=== PATIENT | female | born 1990 | race Two or more races ===

== ENCOUNTER 2019-05-19 20:09 | Emergency (ER) | payer MEDICAID, OTHER ==
[~2019-05-19] VITALS: Ht 157.5 cm; Wt 50.0 kg
[~2019-05-19 20:09] MED LIST: AZIT250T9 PO; PROM5SYR PO
[2019-05-19] MEDS ORDERED: LORazepam 1 MG TABLET PO ONE (23:15)
[2019-05-20 00:03] VITALS: BP 123/66
== END 2019-05-20 00:12 | disposition home or self-care (01) ==
LOC: EMS 20:10
DX: F41.9 Anxiety disorder, unspecified (principal)

== ENCOUNTER 2021-02-02 10:26 | Inpatient (IN) | payer MEDICAID, OTHER ==
[~2021-02-02] VITALS: Ht 162.6 cm; Wt 56.0 kg
[2021-02-02 11:15] LABS: BASOPHILS % (AUTO) 1.1 % (0.0-2.0); EOSINOPHILS % (AUTO) 1.7 % (1.0-6.0); HEMATOCRIT 39.4 % (36-46); HEMOGLOBIN 13.2 g/dL (12.0-16.0); LYMPHOCYTES # (AUTO) 1.9 K/uL (1.0-4.8); LYMPHOCYTES % (AUTO) 27.7 % (22.0-44.0); MEAN CORPUSCULAR HEMOGLOBIN 30.1 pg (26.0-34.0); MEAN CORPUSCULAR HGB CONC 33.4 G/dL (31.0-37.0); MEAN CORPUSCULAR VOLUME 90 fL (80-100); MONOCYTES % (AUTO) 13.9 % (2.0-9.0); NEUTROPHILS # (AUTO) 3.8 K/uL (1.8-7.7); NEUTROPHILS % (AUTO) 55.6 % (40.0-70.0); PLATELET COUNT (AUTO) 210 K/uL (150-450); RED BLOOD CELL COUNT(AUTO) 4.37 MIL/uL (4.00-5.20); RED CELL DISTRIBUTION WIDTH 14.1 % (11.5-14.5)
[2021-02-02] MEDS ORDERED: LORazepam 2 MG/ML VIAL IM ONE (11:30)
[2021-02-02] MEDS ORDERED: DiphenhydrAMINE HCL 50 MG/ML VIAL IM ONE (11:30)
[2021-02-02] MEDS ORDERED: HALOPERIDOL LACTATE 5 MG/ML VIAL IM ONE (11:30)
[2021-02-02 11:32] LABS: ANION GAP 15 mmol/L (8-16); CALCIUM, TOTAL 8.6 mg/dL (8.8-10.5); CARBON DIOXIDE 23 mmol/L (22-29); CHLORIDE 102 mmol/L (98-107); GLOMERULAR FILTR. RATE CALC > 60 mL/min (>60); GLUCOSE,RANDOM 83 mg/dL (70-110); POTASSIUM 3.2 mmol/L (3.5-5.1); SODIUM SERUM 140 mmol/L (136-145); UREA NITROGEN, BLOOD 9 mg/dL (7-18)
[2021-02-02 11:38] LABS: ALANINE AMINOTRANSFERASE 17 U/L (12-78); ALBUMIN 4.2 g/dL (3.4-5.0); ALKALINE PHOSPHATASE 52 U/L (46-116); ASPARTATE AMINOTRANSFERASE 17 U/L (15-37); BILIRUBIN,TOTAL 0.9 mg/dL (0.1-1.0); TOTAL PROTEIN, SERUM 8.3 g/dL (6.4-8.2)
[2021-02-02 13:13] LABS: COVID AG,FIA SOURCE NASOPHARYNGEAL
[2021-02-02] MEDS ORDERED: LORazepam 2 MG TABLET PO PRN (13:15)
[2021-02-02] MEDS ORDERED: ZOLPIDEM TARTRATE 10 MG TABLET PO PRN (13:15)
[2021-02-02] MEDS ORDERED: HALOPERIDOL 5 MG TABLET PO PRN (13:15)
[2021-02-02 16:33] VITALS: BP 105/56
[2021-02-02] MEDS ORDERED: INFLUENZA VIRUS VACCINE QVS 2021-22 (6MO+)/PF 60 MCG/0.5 ML SYRINGE IM. ONE (16:45)
[2021-02-02] MEDS ORDERED: LOPERAMIDE HCL 2 MG CAPSULE PO PRN (20:00)
[2021-02-02] MEDS ORDERED: MAGNESIUM HYDROXIDE SUSPENSION 30 ML UDCUP PO PRN (20:00)
[2021-02-02] MEDS ORDERED: PETROLATUM,WHITE 28 GM JELLY TP PRN (20:00)
[2021-02-02] MEDS ORDERED: ALBUTEROL SULFATE HFA 90 MCG/PUFF 8 GM INHALER IH PRN (20:00)
[2021-02-02] MEDS ORDERED: CloNIDine HCL 0.1 MG TABLET PO PRN (20:00)
[2021-02-02] MEDS ORDERED: GuaiFENesin/D-METHORPHAN [SUGAR-FREE] 200-20MG/10 ML SYRUP UDCUP PO PRN (20:00)
[2021-02-02] MEDS ORDERED: MAG HYDROX/AL HYDROX/SIMETH ES 30 ML SUSPENSION UDCUP PO PRN (20:00)
[2021-02-02] MEDS ORDERED: ONDANSETRON HCL 4 MG TABLET PO PRN (20:00)
[2021-02-02] MEDS ORDERED: NICOTINE 14 MG/24 HOUR PATCH TD PRN (20:00)
[2021-02-02] MEDS ORDERED: DOCUSATE SODIUM 100 MG CAPSULE PO PRN (20:00)
[2021-02-02] MEDS ORDERED: IBUPROFEN 400 MG TABLET PO PRN (20:00)
[2021-02-02] MEDS ORDERED: ACETAMINOPHEN 325 MG TABLET PO PRN (20:00)
[2021-02-03 06:24] VITALS: BP 102/62
[2021-02-03] MEDS: PARoxetine HCL 20 MG TABLET PO SCH (10:15)
[2021-02-03] MEDS ORDERED: POTASSIUM CHLORIDE 10 MEQ ER TABLET PO ONE (17:15)
[2021-02-04 02:00] VITALS: BP 100/68
[2021-02-04] MEDS: PARoxetine HCL 20 MG TABLET PO SCH (09:00)
[2021-02-05 08:12] LABS: CHOL/HDL RATIO 3.2 (3.9-5.7); FREE T4 (FREE THYROXINE) 1.28 ng/dL (0.76-1.46); POTASSIUM 3.9 mmol/L (3.5-5.1); THYROID STIMULATING HORMONE 0.16 uIU/mL (0.36-3.74)
[2021-02-05] MEDS: PARoxetine HCL 20 MG TABLET PO SCH (09:00)
[2021-02-05 16:20] VITALS: BP 124/71
[2021-02-06] MEDS: PARoxetine HCL 20 MG TABLET PO SCH (09:00)
[2021-02-06] MEDS ORDERED: PARO-38 PO (12:58)
== END 2021-02-06 14:10 | disposition home or self-care (01) | DRG 751 ==
LOC: EMS 10:33 → B3A 14:06
DX: F33.3 Major depressive disorder, recurrent, severe with psychotic symptoms (principal); I95.9 Hypotension, unspecified; E87.6 Hypokalemia; G47.00 Insomnia, unspecified; Z20.822 Contact with and (suspected) exposure to COVID-19; F41.9 Anxiety disorder, unspecified; Z59.00 Homelessness unspecified; Z79.899 Other long term (current) drug therapy; Z28.21 Immunization not carried out because of patient refusal
CPT/HCPCS: 80053; 80061; 84132; 84439; 84443; 85025; 99285; G0480; J1200; J1630; J2060